=== PATIENT | female | born 1955 | race Caucasian/White ===

== ENCOUNTER 2017-11-11 08:47 | Day surgery (SDC) | payer OTHER, SELFPAY ==
--- NOTE | 2017-11-11 | PATH_ITS ---
[facility] Accession Number: [id number] . 01 Material submitted: . POLYP AT 30 . 02 Diagnosis: Biopsy Colon Polyp at 30 cm: Mixed tubular and villiform adenoma. MRV/11/12/2017 . 02 Electronically signed: . Artis Gabriel MD, Pathologist NPI- [id number] . 01 Gross description: . Received one formalin-filled container labeled with the patient's name and labeled polyp at 30. The specimen consists of a 1.2 cm portion of tissue, which is bisected and totally submitted in one cassette. ([id number]) /FRR . 02 Pathologist provided ICD-10: D12.5 . 02 CPT . 654829 Performed at: 01 [facility] [address] [id number] MD Steven Serrato MD Phone: [phone] Performed at: 02 [facility] [address] [place], [place] [id number] MD Tanmay Hammond MD Phone: [phone]
[2017-11-11 09:07] VITALS: BP 140/73; PULSE 78; RESP 18; TEMP 36.3; O2SAT 97; BMI 35.6
[2017-11-11] MEDS: SODIUM CHLORIDE 0.9% 1,000 ML 200 ML IV (09:20)
--- NOTE | 2017-11-11 09:45 | PM.HP.1 ---
History of Present Illness Date Patient Seen: 11/11/17 Time Patient Seen: 09:45 Chief complaint: colonoscopy [id number] Narrative: Patient is here for screening colonoscopy. Her last exam was 10 or 11 years ago. It was done elsewhere. She had polyps removed at that time. Patient History Medical History Asthma (Chronic) Essential hypertension (Chronic) Surgical History History of tubal ligation (Resolved ~1979) Family & Social History Social History: household members family Meds Home Medications Medication Instructions Recorded Confirmed Type lisinopril 10 mg PO DAILY 11/11/17 11/11/17 History mometasone [Asmanex HFA] 2 puff INHALATION BID 11/11/17 11/11/17 History Allergies Allergy/AdvReac Type Severity Reaction Status Date / Time Penicillins Allergy Severe Hives Verified 11/11/17 09:34 latex Allergy Mild Verified 11/11/17 09:35 Review of Systems Review of Systems All systems reviewed & are unremarkable except as noted in HPI and below Respiratory Comments: Used inhalers this morning Exam Vital Signs (past 8 hours): - 11/11/17 09:07 Temperature 97.4 F L Pulse Rate 78 Respiratory Rate 18 Blood Pressure 140/73 Pulse Oximetry 97 Oxygen Delivery Method Room Air Narrative Exam Narrative: Operative no apparent distress. Eyes nonicteric. Lungs are clear to auscultation without rales or rhonchi. Heart regular rate and rhythm without murmur gallop. Abdomen is protuberant soft nontender without mass. Patient is alert and oriented x3. Assessment & Plan Plan: Assessment/Plan Narrative: I have discussed the procedure and the rationale with the patient including risks of bleeding, perforation which would necessitate a major operation, failure to find remove all lesions and the potential to tattoo. They appeared to understand and wished to proceed.
[2017-11-11] MEDS: MIDAZOLAM 5 MG/5 ML VIAL IV (09:54)
[2017-11-11] MEDS: fentaNYL 250 MCG/5 ML INJ IV (09:55)
--- NOTE | 2017-11-11 10:15 | PM.OP.ENDO ---
Operative Date/Time/Diagnoses Date of procedure: 11/11/17 Time of procedure: 10:15 Pre-op diagnosis: Screening examination. Personal history of polyps. Last exam ten to 11 years ago. Post-op diagnosis: same (Polyp on a stalk at 30 cm. One small red raised lesion cauterized at 20 cm. Occasional diverticulosis. Internal hemorrhoids with scarring.) Procedure & Clinicians Study performed: Colonoscopy with hot snare polypectomy and cauterization of a small lesion. Same procedure as scheduled: Yes Indications: Screening Surgeon: Adria Lemons Procedure Notes SCOAP/Timeout: Performed Procedure in detail: The patient was placed in the left lateral decubitus position and underwent IV sedation directed by the surgeon consisting of fentanyl and Versed. Digital exam was remarkable for mild narrowing but no palpable mass. The scope was inserted and advanced through the rectum into the sigmoid, descending, transverse, and ascending colon. Occasional diverticulosis was noted. The cecum was reached identified by the ileocecal valve and the appendiceal opening. The ileocecal valve was not able to be cannulated. The scope was gradually brought out. Polyps were found at[30 and 20 cm from the anal verge. The lesion at 30 cm was larger and on a stalk. It was snared and completely removed. The lesion at 20 cm was a tiny red raised lesion which I simply cauterized. We ultimately reached the rectum.]. The scope ultimately was retroflexed in the rectum. The appearance was remarkable for internal hemorrhoids with scarring but no ulceration.. The scope was removed and the patient tolerated the procedure well Scope withdrawal time: 9 min Sedation minutes: 23 Recommendations: Colonscopy in 5 years Follow up: as needed Disposition: PACU
[2017-11-11 10:17] VITALS: BP 105/55; PULSE 72; RESP 22; TEMP 36.4; O2SAT 97
[2017-11-11 10:22] VITALS: BP 103/53; PULSE 66; RESP 16; O2SAT 98
[2017-11-11 10:27] VITALS: BP 98/57; PULSE 65; RESP 17; TEMP 36.2; O2SAT 94
[2017-11-11 10:33] VITALS: BP 101/58; PULSE 69; RESP 16; TEMP 36.6; O2SAT 96
--- NOTE | 2017-11-11 17:14 | SUR.PHASEII ---
DCD IV ON DISCHARGE, CATH INTACT
== END 2017-11-11 11:00 | disposition home or self-care (01) ==
PROVIDERS: PCP Nurse Practitioner; Visit Provider Specialist
PROC: 0DJD8ZZ Inspection of Lower Intestinal Tract, Via Natural or Artificial Opening Endoscopic (ICD-10-PCS; CPT 45378; principal; 2017-11-11 09:45)
DX: Z12.11 Encounter for screening for malignant neoplasm of colon (principal); Z86.010 Personal history of colon polyps; K57.30 Diverticulosis of large intestine without perforation or abscess without bleeding; K64.8 Other hemorrhoids; D12.5 Benign neoplasm of sigmoid colon; J45.909 Unspecified asthma, uncomplicated; I10 Essential (primary) hypertension
CPT/HCPCS: 45385; 99152; 99153; J2250; J3010

== ENCOUNTER 2024-04-11 08:39 | Emergency (ER) | payer OTHER, SELFPAY ==
[2024-04-11 08:50] VITALS: BP 167/74; PULSE 58; RESP 18; TEMP 36.8; O2SAT 98; BMI 34.4
--- NOTE | 2024-04-11 08:50 | ED_ITS ---
HPI - Extremity Problem General Chief complaint: Extremity Problem,Nontraumatic Stated complaint: Left hand pain Time Seen by Provider: 04/11/24 08:50 History of Present Illness HPI Narrative: A 68-year-old woman with a history of elevated cholesterol and hypertension here with concerns about left hand pain. Noticed it last night when the hand felt ?tight?. This morning the hand felt stiff and sore it hurts to close and open her hand. She has not had any fevers she has not had any traumatic injury she does not have a history of arthritis she is not immunocompromised. She has primary care with clinic and migdalia Santiago. Related Data Home Medications Medication Instructions Recorded Confirmed lisinopril 10 mg tablet 10 mg PO DAILY 11/11/17 11/11/17 mometasone 100 mcg/actuation HFA 2 puff inhalation BID 11/11/17 11/11/17 aerosol inhaler (Asmanex HFA) Allergies Allergy/AdvReac Type Severity Reaction Status Date / Time Penicillins Allergy Severe Hives Verified 04/11/24 08:53 latex Allergy Mild Verified 04/11/24 08:53 Patient History Medical History (Updated 04/11/24 @ 10:55 by Artis Horvath MD) Asthma Essential hypertension Surgical History (Updated 11/11/17 @ 09:46 by Adria Lemons MD) History of tubal ligation (~1979) Social History household members: family Smoking Status: Never smoker Exam Initial Vital Signs Initial Vital Signs: Vital Signs Temperature 98.3 F 04/11/24 08:50 Pulse Rate 58 L 04/11/24 08:50 Respiratory Rate 18 04/11/24 08:50 Blood Pressure 167/74 H 04/11/24 08:50 Pulse Oximetry 98 04/11/24 08:50 Oxygen Delivery Method Room Air 04/11/24 08:50 Extrem Other: Left hand is visually normal without swelling. There is no warmth. Pulses are intact capillary refill is intact. There is no tenderness to palpation. There is no proximal lymphangitic streaking. She has decreased range of motion states that hand hurts rather diffusely when she tries to make a fist she is able to extend the fingers fully. Course Orders Ordered: ED Orders 04/11/24 09:03 XR hand LT min 3V Stat Vital Signs Vital signs: Vital Signs - 8 hr 04/11/24 08:50 Temperature 98.3 F Pulse Rate 58 L Respiratory Rate 18 Blood Pressure 167/74 H Pulse Oximetry 98 Oxygen Delivery Method Room Air MDM - Extremity (Nontraumatic) Imaging Data Extremity x-ray #1: My Impression: Independent review of left hand x-ray, no acute findings Radiologist's Impression: [address] [address] XRay Report Signed Patient: Maxine Albright MR#: [id number] : 1955 Acct:[id number] Age/Sex: 68 / F Date of Service: 04/11/24 Loc: ED Accession Number: [id number] Procedure: XR hand LT min 3V Ordering Provider: Artis Horvath MD PROCEDURE: XR HAND LT MIN 3V INDICATIONS: hand pain TECHNIQUE: 3 views of the hand(s) acquired. COMPARISON: None. 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 No acute displaced fracture. No dislocation. No suspicious soft tissue calcifications. If there is high concern for further derangement, consider MRI evaluation. Dictated by: Delvis Farfan M.D. on 04/11/2024 at 9:16 Approved by: Delvis Farfan M.D. on 04/11/2024 at 9:17 [facility] Narrative Medical decision making narrative: 60-year-old woman without major comorbidities presenting with atraumatic left hand pain of 1 day duration. Does not appear to be infected, does not appear to be ischemic and she is neurologically intact. No acute findings on plain x-ray. Recommended symptomatic treatment with ibuprofen and primary care follow up Discharge Plan Departure Patient Disposition: Home Clinical Impression: Hand pain, left Activity Restrictions/Additional Instructions: Examination of your hand is reassuring and on x-ray it looks like you have some arthritis. I think it is safe for you to go home. I recommend that you use ibuprofen 400 mg up to 3 times a day as needed for pain, additionally, you can use Tylenol 650 mg up to 3 times a day. Follow up soon with her primary care provider. If you develop swelling of your hand or fevers recheck in the emergency department Prescriptions: No Action lisinopril 10 mg Tablet 10 mg PO DAILY mometasone [Asmanex HFA] 100 mcg/actuation Hfa Aerosol Inhaler 2 puff INHALATION BID Referrals: Lily Bailey MD [Primary Care Provider] - Stand Alone Forms: Patient Portal/API/Survey
--- NOTE | 2024-04-11 09:03 | DI.RAD.S_ITS ---
PROCEDURE: XR HAND LT MIN 3V INDICATIONS: hand pain TECHNIQUE: 3 views of the hand(s) acquired. COMPARISON: None. 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 No acute displaced fracture. No dislocation. No suspicious soft tissue calcifications. If there is high concern for further derangement, consider MRI evaluation. Dictated by: Delvis Farfan M.D. on 04/11/2024 at 9:16 Approved by: Delvis Farfan M.D. on 04/11/2024 at 9:17
[2024-04-11 11:04] VITALS: BP 160/70; PULSE 55; RESP 18; O2SAT 99
== END 2024-04-11 11:04 | disposition home or self-care (01) ==
PROVIDERS: Emergency Provider Emergency Medicine; PCP Family Medicine
DX: M79.642 Pain in left hand (principal)
CPT/HCPCS: 73130; 99281; 99283

== ENCOUNTER 2024-08-18 10:16 | Day surgery (SDC) | payer OTHER, SELFPAY ==
[2024-08-18 10:53] VITALS: BP 169/75; PULSE 60; RESP 16; TEMP 36.4; O2SAT 100
--- NOTE | 2024-08-18 10:59 | P.HP_ITS ---
History of Present Illness History of Present Illness Date Patient Seen: 08/18/24 Chief complaint: SDC Narrative: History of colon polyps [facility] Medical History (Updated 04/26/24 @ 00:00 by ) Asthma Essential hypertension Surgical History (Updated 11/11/17 @ 09:46 by Adria Lemons MD) History of tubal ligation (~1979) Social History household members: family Meds Home Medications and Allergies Home Medications ?Medication ?Instructions ?Recorded ?Confirmed ?Type lisinopril 10 mg tablet 10 mg PO DAILY 11/11/17/04/13 History mometasone 100 mcg/actuation HFA 2 puff inhalation BID 11/11/17 08/18/24 History aerosol inhaler (Asmanex HFA) Allergies Allergy/AdvReac Type Severity Reaction Status Date / Time Penicillins Allergy Severe Hives Verified 08/18/24 10:52 latex Allergy Mild Verified 08/18/24 10:52 Assessment & Plan Assessment & Plan narrative: History of colon polyps need for follow-up colonoscopy. Risks, benefits, alternatives have been explained. Time-Based Coding :: [TOTAL MINUTES] spent with patient and on the chart (including review of chart, obtaining history, exam, reviewing outside data, placing orders, documenting exam and treatment plan, and counseling patient) on [DATE]. [employer] Document charge(s): No
--- NOTE | 2024-08-18 11:00 | PM.OP.COLON ---
Operative Date/Time/Diagnoses Date of procedure: 08/18/24 Time of procedure: 11:51 Pre-op diagnosis: See indication and findings Post-op diagnosis: same Procedure & Clinicians Study performed: Colonoscopy Same procedure(s) as scheduled: Yes Surgeon: Lencho Rubio Anesthesia Type: Other Procedure Notes Procedure in detail: After informed consent was obtained the patient was placed in left lateral decubitus position. The video colonoscope was introduced the rectum slowly advanced cecum. Preparation was excellent. On slow withdrawal mucosa was carefully examined. The scope was removed. The patient tolerated procedure well. Blood loss none Complications none Sedation mac Findings 1. Normal colonoscopy to cecum Patient should have follow-up colonoscopy in 5 years
[2024-08-18] MEDS: LACTATED RINGERS 1,000 ML 42 ML IV (11:10)
[2024-08-18 11:54] VITALS: BP 109/58; PULSE 64; RESP 16; TEMP 36.2; O2SAT 96
[2024-08-18 11:58] VITALS: BP 105/48; PULSE 62; RESP 16; O2SAT 99
== END 2024-08-18 12:17 | disposition home or self-care (01) ==
PROVIDERS: PCP Family Medicine; Referring Provider Internal Medicine Gastroenterology; Visit Provider Internal Medicine Gastroenterology
PROC: 0DJD8ZZ Inspection of Lower Intestinal Tract, Via Natural or Artificial Opening Endoscopic (ICD-10-PCS; CPT 45378; principal; 2024-08-18 11:30)
DX: Z12.11 Encounter for screening for malignant neoplasm of colon (principal); Z86.0100 Personal history of colon polyps, unspecified; I10 Essential (primary) hypertension; J45.909 Unspecified asthma, uncomplicated
CPT/HCPCS: G0105; J2704